=== PATIENT | male | born 1940 | race Caucasian/White ===

== ENCOUNTER 2018-03-11 10:44 | Emergency (ER) | payer MEDICARE ==
[2018-03-11] MEDS ORDERED: Albuterol/Ipratropium NEB.SOL* Albuterol 2.5 MG/Ipratropium 0.5 MG 3 ML INH ONE (12:38)
--- NOTE | 2018-03-11 12:43 | ED ---
Shortness of Breath - HPI Summary HPI Summary: This patient is a 77 year old M presenting to ED accompanied by daughter with a chief complaint of SOB since 1 year ago. The CC is described as having difficulty sleeping due to difficulty breathing and this has been gradually worsened since onset. The patient rates the pain 0/10 in severity. Symptoms aggravated by activity. Symptoms alleviated by nothing. Patient denies unusual cough (has productive cough at baseline). The patient takes his advair 2x a day and his ventolin 4x a day. Patient has used his inhaler today; doesnt have a nebulizer at home. Pt sees Dr. Carrizales at [place]. PMHx of tetanus (2000, was in a coma for 3 months). - History of Current Complaint Chief Complaint: EDShortnessOfBreath Time Seen by Provider: 03/11/18 12:22 Hx Obtained From: Patient Onset/Duration: Gradual Onset, Lasting Weeks - gradually worsened over 1 year, Still Present Timing: Constant Current Severity: None Dyspnea At: Exertion Aggrevating Factors: Other - activity Alleviating Factors: Nothing - Allergy/Home Medications Allergies/Adverse Reactions: Allergies Allergy/AdvReac Type Severity Reaction Status Date / Time No Known Allergies Allergy Verified 03/11/18 10:46 PMH/Surg Hx/FS Hx/Imm Hx Previously Healthy: No - tetanus Cardiovascular History: Reports: Hx Hypertension Respiratory History: Reports: Hx Chronic Obstructive Pulmonary Disease (COPD) Infectious Disease History: No Infectious Disease History: Denies: Traveled Outside the [place] in Last 30 Days - Family History Known Family History: Positive: Diabetes - daughter type 1, father type 2, Other Family History: stroke - Social History Alcohol Use: None Substance Use Type: Reports: None Smoking Status (MU): Former Smoker Review of Systems Positive: Shortness Of Breath. Negative: Cough - denies unusual cough (has productive cough at baseline) Neurological: Other - difficulty sleeping due to difficulty breathing All Other Systems Reviewed And Are Negative: Yes Physical Exam - Summary Physical Exam Summary: Appearance: The patient is well-nourished in no acute distress and in no acute pain. Skin: The skin is warm and dry and skin color reflects adequate perfusion. HEENT: The head is normocephalic and atraumatic. The pupils are equal and reactive. The conjunctivae are clear and without drainage. Nares are patent and without drainage. Mouth reveals moist mucous membranes and the throat is without erythema and exudate. The external ears are intact. The ear canals are patent and without drainage. The tympanic membranes are intact. Neck: The neck is supple with full range of motion and non-tender. There are no carotid bruits. There is no neck vein distension. Respiratory: Chest is non-tender. Lungs have very decreased breath sounds, increased AP diameter in his chest, increased E:I ratio, and some mild expiratory wheezes. Cardiovascular: Heart is regular rate and rhythm. There is no murmur or rub auscultated. There is no peripheral edema and pulses are symmetrical and equal. Abdomen: The abdomen is soft and non-tender. There are normal bowel sounds heard in all four quadrants and there is no organomegaly palpated. Musculoskeletal: There is no back tenderness noted. Extremities are non-tender with full range of motion. There is good capillary refill. There is no peripheral edema or calf tenderness elicited. Neurological: Patient is alert and oriented to person, place and time. The patient has symmetrical motor strength in all four extremities. Cranial nerves are grossly intact. Deep tendon reflexes are symmetrical and equal in all four extremities. Psychiatric: The patient has an appropriate affect and does not exhibit any anxiety or depression. Triage Information Reviewed: Yes Vital Signs On Initial Exam: Initial Vitals Temp Pulse Resp BP Pulse Ox 98.6 F 93 20 122/65 98 03/11/18 10:48 03/11/18 10:48 03/11/18 10:48 03/11/18 10:48 03/11/18 10:48 Vital Signs Reviewed: Yes Diagnostics - Vital Signs Vital Signs Temp Pulse Resp BP Pulse Ox 03/11/18 12:00 98 17 98 03/11/18 11:59 103 24 146/76 97 03/11/18 10:48 98.6 F 93 20 122/65 98 - Laboratory Result Diagrams: 03/11/18 12:50 03/11/18 12:50 Lab Statement: Any lab studies that have been ordered have been reviewed, and results considered in the medical decision making process. - Radiology CXR Radiology Interpretation Completed By: Radiologist - STIGMATA OF CHRONIC OBSTRUCTIVE PULMONARY DISEASE IS SEEN IN THIS OTHERWISE NONACUTE CHEST X-RAY. ED physician has reviewed this radiology report. 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 Second Eval Re-Evaluation Time: 16:31 Comment: Discussed troponin results with the patient and plan for discharge. Patient understands and agrees with this plan. Course/Dx - Course Course Of Treatment: Mr. Monsalve presented to the emergency department complaining of shortness of breath for a long time. His PCP has him on 2 inhalers. He shortness of breath has been gradually worsening to the point where he has difficulty getting up and moving around at this point. He's not had recent URI symptoms on evaluation he had stigmata of COPD as well as wheezing. His workup was unremarkable and he did improve quite a bit with the nebulizer treatment. I'm going to give him a short course of steroids and recommend that he follow-up with the manager corporate responsibility for tweaking of his medications. - Diagnoses Differential Diagnosis/HQI/PQRI: Positive: COPD Exacerbation Provider Diagnoses: COPD exacerbation Discharge - Sign-Out/Discharge Documenting (check all that apply): Patient Departure - Discharge Plan Condition: Stable Disposition: HOME Prescriptions: methylPREDNISolone [Medrol Dosepak 4 MG*] 4 mg PO .SEE GLENN INSTRUCTION #1 tab Patient Education Materials: COPD (Chronic Obstructive Pulmonary Disease) (ED) Referrals: Sofie MUSTAFA,Osmar Kline [Primary Care Provider] - (Please follow up with your primary care physician in 2-3 days.) Additional Instructions: Please follow up with your primary care physician in 2-3 days. RETURN TO THE ED FOR ANY NEW OR WORSENING SYMPTOMS. - Billing Disposition and Condition Condition: STABLE Disposition: Home - Attestation Statements Document Initiated by Andrei: Yes Documenting Scribe: Baljit Flynn Provider For Whom Andrei is Documenting (Include Credential): Hieu Kimble MD Scribe Attestation: I, Baljit Flynn, scribed for Hieu Kimble MD on 03/11/18 at 2034. Scribe Documentation Reviewed: Yes Provider Attestation: The documentation as recorded by the Baljit st accurately reflects the service I personally performed and the decisions made by me, Hieu Kimble MD
[2018-03-11 13:14] LABS: ABS Basophils 0.1 10^3/ul (0-0.2); ABS Eosinophils 0.3 10^3/ul (0-0.6); ABS Lymphocytes 1.2 10^3/ul (1.0-4.8); ABS Monocytes 0.6 10^3/ul (0-0.8); ABS Neutrophils 3.9 10^3/ul (1.5-7.7); ABS Nucleated RBC 0 10^3/ul; Eosinophil % 4.9 % (0-6); Hematocrit 32 % (42-52); Lymphocyte % 19.5 % (25-47); Mean Corpuscular HGB Conc 34 g/dl (31-36); Mean Corpuscular Hemoglobin 31 pg (27-31); Mean Corpuscular Volume 91 fL (80-94); Mean Platelet Volume 7.9 um3 (7.4-10.4); Nucleated Red Blood Cells % 0.1; Platelet Count 233 10^3/ul (150-450); Red Blood Count 3.55 10^6/ul (4.00-5.40); Red Cell Distribution Width 15 % (10.5-15)
[2018-03-11 13:23] LABS: EGFR Non-African American 53.3 (>60)
--- NOTE | 2018-03-11 13:46 | RAD ---
INDICATION: Shortness of breath. COMPARISON: None TECHNIQUE: PA and lateral views of the chest were obtained. FINDINGS: The heart and mediastinum are normal in size and contour. There is mild calcified atherosclerosis overlying the arch of the aorta. On the AP view the lungs appear hyperaerated. The lateral view there is an increased retrosternal airspace and flattened diaphragm. Visualized bones are normal for the patient's age. There is no radiographic evidence of free air beneath the diaphragm IMPRESSION: STIGMATA OF CHRONIC OBSTRUCTIVE PULMONARY DISEASE IS SEEN IN THIS OTHERWISE NONACUTE CHEST X-RAY.
[2018-03-11 18:27] VITALS: BP 145/71
== END 2018-03-11 18:27 | disposition home or self-care (01) ==
LOC: ED 10:44
DX: J44.1 Chronic obstructive pulmonary disease with (acute) exacerbation (principal); I10 Essential (primary) hypertension; Z87.891 Personal history of nicotine dependence
CPT/HCPCS: 36415; 71046; 80053; 83605; 83880; 84484; 85025; 86140; 93005; 99284; A9270-GY

== ENCOUNTER 2021-08-29 21:01 | Inpatient (IN) ==
[2021-08-29 21:40] LABS: PCO2 Arterial 58 mmHg (35-45); PO2 Arterial 138 mmHg (80-100)
[2021-08-29 21:41] LABS: ABS Basophils 0.1 10^3/ul (0-0.2); ABS Lymphocytes 1.1 10^3/ul (1.0-4.8); ABS Monocytes 0.8 10^3/ul (0-0.8); ABS Neutrophils 12.4 10^3/ul (1.5-7.7); Eosinophil % 0.2 %; Hematocrit 30 % (42-52); Lymphocyte % 7.5 %; Mean Corpuscular HGB Conc 33 g/dL (31-36); Mean Corpuscular Hemoglobin 31 pg (27-31); Mean Corpuscular Volume 95 fL (80-94); Mean Platelet Volume 8.6 fL (7.4-10.4); Nucleated Red Blood Cells % 0.1; Platelet Count 213 10^3/uL (150-450); Red Blood Count 3.17 10^6 /uL (4.18-5.48); Red Cell Distribution Width 17 % (10-15); White Blood Count 14.3 10^3/uL (3.5-10.8)
[2021-08-29 21:56] LABS: Activated Partial Thrombo Time 25.3 seconds (26.0-38.0); INR 1.01 (0.86-1.15)
[2021-08-29 22:03] LABS: Troponin I 0.75 ng/mL (<0.03)
[2021-08-29] MEDS ORDERED: Furosemide 40 mg/4 ml IV VIAL IV SLOW PU ONE (22:04)
[2021-08-29 22:32] LABS: ALT 43 U/L (7-52); AST 45 U/L (13-39); Albumin 3.7 g/dL (3.2-5.2); Albumin/Globulin Ratio 1.4 (1-3); Alkaline Phosphatase 56 U/L (35-149); Anion Gap 7 mmol/L (2-11); Blood Urea Nitrogen 33 mg/dL (6-24); C Reactive Protein < 1.00 mg/L (<8.01); CO2 Carbon Dioxide 28 mmol/L (22-32); Calcium 8.8 mg/dL (8.6-10.3); Chloride 100 mmol/L (101-111); Creatine Kinase 205 U/L (10-223); Globulin 2.7 g/dL (2-4); Glucose 134 mg/dL (70-100); Potassium 4.2 mmol/L (3.5-5.0); Sodium 135 mmol/L (135-145); Total Protein 6.4 g/dL (6.4-8.9)
[2021-08-29] MEDS ORDERED: Ondansetron 4 mg VIAL 2 MG/ML 2 ml VIAL IV PRN (23:27)
[2021-08-29 23:31] LABS: Urine Appearance Cloudy; Urine Bacteria 2+ (Absent); Urine Bilirubin Negative (Negative); Urine Blood 1+ (Negative); Urine Color Yellow; Urine Glucose Negative (Negative); Urine Ketones Negative (Negative); Urine Nitrite Positive (Negative); Urine Protein 1+(30 mg/dL) (Negative); Urine Red Blood Cell Trace(0-2/hpf) (Absent); Urine Specific Gravity 1.017 (1.002-1.030); Urine Squamous Epithelial Cell Present (Absent); Urine Urobilinogen Negative (Negative); Urine White Blood Cell Trace(0-5/hpf) (Absent)
[2021-08-29] MEDS ORDERED: methylPREDNISolone 125 mg 2 ML VIAL IV ONE (23:39)
[2021-08-29] MEDS ORDERED: methylPREDNISolone SOD 40 mg/ml 1 ml VIAL IV SCH (23:45)
[2021-08-29] MEDS ORDERED: Enoxaparin 40 MG/0.4 ML SYR SUBCUT SCH (23:45)
[2021-08-29] MEDS ORDERED: Enoxaparin 30 MG/0.3 ML SYR SUBCUT SCH (23:46)
[2021-08-29] MEDS ORDERED: Azithromycin 500 MG IV - ED ONCE IVPB ONE (23:49)
[2021-08-30] MEDS: Albuterol 2.5mg/3 ml (0.083%) NEB.SOLN INH SCH ×6 (00:31→19:36)
[2021-08-30 00:35] LABS: PCO2 Arterial 48 mmHg (35-45); PO2 Arterial 110 mmHg (80-100)
[2021-08-30 00:59] LABS: Troponin I 0.86 ng/mL (<0.03)
[2021-08-30 04:00] LABS: Troponin I 1.87 ng/mL (<0.03)
[2021-08-30] MEDS ORDERED: Heparin 5000 UNITS/ML 1 mL VIAL IV SCH (05:00)
[2021-08-30] MEDS: Heparin DRIP 25,000 UNITS BAG 25,000 UNITS/500 ML BAG IV SCH (05:22)
[2021-08-30 06:53] LABS: Hematocrit 30 % (42-52); Hemoglobin 9.8 g/dL (14.0-18.0); Mean Corpuscular HGB Conc 33 g/dL (31-36); Mean Corpuscular Hemoglobin 32 pg (27-31); Mean Corpuscular Volume 95 fL (80-94); Platelet Count 198 10^3/uL (150-450); Red Blood Count 3.11 10^6 /uL (4.18-5.48); Red Cell Distribution Width 17 % (10-15); White Blood Count 4.5 10^3/uL (3.5-10.8)
[2021-08-30 07:10] LABS: ABS Lymphocytes 0.8 10^3/ul (1.0-4.8); ABS Neutrophils 3.6 10^3/ul (1.5-7.7); Lymphocyte % 17.6 %
[2021-08-30 07:23] LABS: Troponin I 3.78 ng/mL (<0.03)
[2021-08-30 07:28] LABS: Calcium 8.7 mg/dL (8.6-10.3); Magnesium 2.3 mg/dL (1.9-2.7); Phosphorus 5.9 mg/dL (2.5-5.0); Potassium 3.9 mmol/L (3.5-5.0)
[2021-08-30] MEDS: methylPREDNISolone SOD 40 mg/ml 1 ml VIAL IV SCH ×2 (09:19→16:34)
[2021-08-30] MEDS: Mometasone/Formoter 200/5 MDI INH SCH ×2 (09:41→19:49)
[2021-08-30] MEDS: SPIRIVA Respimat (tiotropium) 2.5 mcg/inh Inhaler INH SCH (09:41)
[2021-08-30 12:24] LABS: Troponin I 5.97 ng/mL (<0.03)
[2021-08-30 12:32] LABS: Activated Partial Thrombo Time 57.4 seconds (26.0-38.0); INR 1.06 (0.86-1.15)
[2021-08-30] MEDS ORDERED: Perflutren Lipid Microsphere 3 ML VIAL ONE (12:39)
[2021-08-30 17:33] LABS: Troponin I 5.09 ng/mL (<0.03)
[2021-08-30] MEDS ORDERED: Albuterol 2.5mg/3 ml (0.083%) NEB.SOLN INH PRN (19:14)
[2021-08-30] MEDS: Azithromycin 500 mg/250 ml NS 500 MG/250 ML BAG IVPB SCH (20:26)
[2021-08-30] MEDS ORDERED: Azithromycin 500 mg/250 ml NS 500 MG/250 ML BAG IVPB SCH (21:00)
[2021-08-31] MEDS: methylPREDNISolone SOD 40 mg/ml 1 ml VIAL IV SCH ×3 (00:33→15:50)
[2021-08-31] MEDS ORDERED: Dextran 70/Hypromellose Tears Eye Drops 15 ml BTL (for Artificials Tears) BOTH EYES PRN (00:51)
[2021-08-31] MEDS: Albuterol HFA INHALER 8 gm MDI INH SCH ×4 (01:12→19:12)
[2021-08-31 04:48] LABS: ABS Lymphocytes 1.1 10^3/ul (1.0-4.8); ABS Monocytes 0.4 10^3/ul (0-0.8); ABS Neutrophils 10.4 10^3/ul (1.5-7.7); Hematocrit 28 % (42-52); Hemoglobin 9.2 g/dL (14.0-18.0); Lymphocyte % 8.9 %; Mean Corpuscular HGB Conc 34 g/dL (31-36); Mean Corpuscular Hemoglobin 31 pg (27-31); Mean Corpuscular Volume 94 fL (80-94); Mean Platelet Volume 8.8 fL (7.4-10.4); Platelet Count 196 10^3/uL (150-450); Red Blood Count 2.93 10^6 /uL (4.18-5.48); Red Cell Distribution Width 17 % (10-15); White Blood Count 11.9 10^3/uL (3.5-10.8)
[2021-08-31 05:36] LABS: Calcium 8.7 mg/dL (8.6-10.3); Potassium 3.9 mmol/L (3.5-5.0); eGFR CKD-EPI 40.7 (>60)
[2021-08-31] MEDS ORDERED: Lactated Ringers 1000 ml BAG 1,000 ML IV SCH (06:00)
[2021-08-31] MEDS: SPIRIVA Respimat (tiotropium) 2.5 mcg/inh Inhaler INH SCH (07:41)
[2021-08-31] MEDS: Mometasone/Formoter 200/5 MDI INH SCH ×2 (07:41→19:12)
[2021-08-31] MEDS ORDERED: Heparin 2 UNITS/ML 1000 mls 2,000 ML IV ONE (09:22)
[2021-08-31] MEDS ORDERED: niCARdipine 0.1MG/ML IVPREMIX 20 MG/200 ML BAG IV ONE (09:22)
[2021-08-31] MEDS ORDERED: nitroGLYCERIN DRIP (PHA MIX) 25,000 MCG/250 ML BAG ONE (09:22)
[2021-08-31] MEDS ORDERED: Heparin 1,000 UNIT/ML 10 ml (10,000 UNITS) CATHLAB/DIALYSIS ONE (09:22)
[2021-08-31] MEDS ORDERED: Iohexol 350 (CONTRAST) 200 ML MDV IV ONE ×2 (09:22→09:23)
[2021-08-31] MEDS ORDERED: Lidocaine 1% VIAL 10 MG/ML VIAL ONE (09:22)
[2021-08-31] MEDS ORDERED: Midazolam 5 mg/5 ml VIAL 1 mg/ml 5 ml VIAL (5 mg) ONE (09:22)
[2021-08-31] MEDS ORDERED: fentaNYL 100 mcg/2 ml 50 MCG/ML VIAL ONE (09:22)
[2021-08-31] MEDS ORDERED: Piperacillin/Tazobac ADVAN 3.375 GM in NS 0.9% 100 ml BAG 100 ML IV ONE (12:30)
[2021-08-31] MEDS ORDERED: Zosyn per Pharmacy NOTE FOLLOW UP SCH (13:00)
[2021-08-31] MEDS: ZOSYN 3.375 GM Q8H per EXTENDED INFUSION IV SCH (16:52)
[2021-08-31] MEDS: Azithromycin 500 mg/250 ml NS 500 MG/250 ML BAG IVPB SCH (20:29)
[2021-08-31] MEDS ORDERED: Azithromycin 500 mg/250 ml NS 500 MG/250 ML BAG IVPB SCH (21:00)
[2021-09-01] MEDS: Albuterol HFA INHALER 8 gm MDI INH SCH ×3 (00:27→13:15)
[2021-09-01] MEDS: methylPREDNISolone SOD 40 mg/ml 1 ml VIAL IV SCH ×2 (01:00→08:50)
[2021-09-01] MEDS: ZOSYN 3.375 GM Q8H per EXTENDED INFUSION IV SCH ×2 (01:01→10:13)
[2021-09-01] MEDS ORDERED: Albuterol/Ipratropium NEB.SOL (2.5/0.5 MG) 3 ML NEB.SOLN INH PRN (01:03)
[2021-09-01] MEDS: Heparin DRIP 25,000 UNITS BAG 25,000 UNITS/500 ML BAG IV SCH (02:36)
[2021-09-01 04:59] LABS: ABS Basophils 0.1 10^3/ul (0-0.2); ABS Lymphocytes 0.9 10^3/ul (1.0-4.8); ABS Monocytes 0.5 10^3/ul (0-0.8); ABS Neutrophils 9.8 10^3/ul (1.5-7.7); Hematocrit 28 % (42-52); Hemoglobin 9.3 g/dL (14.0-18.0); Lymphocyte % 8.4 %; Mean Corpuscular HGB Conc 33 g/dL (31-36); Mean Corpuscular Hemoglobin 31 pg (27-31); Mean Corpuscular Volume 94 fL (80-94); Mean Platelet Volume 9.6 fL (7.4-10.4); Platelet Count 197 10^3/uL (150-450); Red Blood Count 2.98 10^6 /uL (4.18-5.48); Red Cell Distribution Width 17 % (10-15); White Blood Count 11.3 10^3/uL (3.5-10.8)
[2021-09-01] MEDS ORDERED: guaiFENesin 100 mg/5 ml LIQ unit dose cup PO PRN (05:25)
[2021-09-01 06:00] LABS: Calcium 8.6 mg/dL (8.6-10.3); Potassium 4.3 mmol/L (3.5-5.0); eGFR CKD-EPI 44.5 (>60)
[2021-09-01] MEDS: SPIRIVA Respimat (tiotropium) 2.5 mcg/inh Inhaler INH SCH (08:08)
[2021-09-01] MEDS: Mometasone/Formoter 200/5 MDI INH SCH (08:08)
[2021-09-01] MEDS ORDERED: COUGH PO PRN (10:00)
[2021-09-01] MEDS ORDERED: [UNRECOGNIZED DRUG - OTHER] PO PRN (10:00)
[2021-09-01 13:51] VITALS: BP 122/79
== END 2021-09-01 13:50 | disposition home or self-care (01) | DRG 280 ==
LOC: ED 21:01 → ICU 21:32 → EDHOLD 23:27 → SUATTDRO 23:27 → ICU 08-30 16:13
PROVIDERS: ADMIT Student in an Organized Health Care Education/Training Program; ATTEND Surgery Surgical Critical Care